=== PATIENT | female | born 1965 | race Caucasian/White ===

== ENCOUNTER 2016-07-06 17:36 | Emergency (ER) | payer MEDICARE | END 2016-07-06 18:25 | disposition home or self-care (01) | LOC: ER 17:36 | DX: K02.9 Dental caries, unspecified (principal); K04.7 Periapical abscess without sinus; K08.89 Other specified disorders of teeth and supporting structures; F17.210 Nicotine dependence, cigarettes, uncomplicated; Z79.899 Other long term (current) drug therapy ==

== ENCOUNTER 2016-07-10 15:15 | Emergency (ER) | payer MEDICARE, OTHER ==
[~2016-07-10 15:15] MED LIST: ALBUTEROL IN200 PUFF INH; DULCOLAX5 MG PO; LISINOPRIL10 MG PO; LORATADINE10 MG PO; METHADONE HCL10 MG PO; MONTELUKAST SOD10 MG PO; NEURONTIN800 MG PO; OXYCODONE HCL15 MG PO
== END 2016-07-10 16:20 | disposition home or self-care (01) ==
LOC: ER 15:15
DX: S93.601A Unspecified sprain of right foot, initial encounter (principal); W18.09XA Striking against other object with subsequent fall, initial encounter; Y92.009 Unspecified place in unspecified non-institutional (private) residence as the place of occurrence of the external cause
CPT/HCPCS: 73610; 73630; 99070; 99283; 99283-25; J7040; Q9967

== ENCOUNTER 2016-08-06 11:31 | Emergency (ER) | payer MEDICARE, OTHER | END 2016-08-06 13:50 | disposition other institution (70) | LOC: ER 11:31 | DX: S73.102A Unspecified sprain of left hip, initial encounter (principal); X50.9XXA Other and unspecified overexertion or strenuous movements or postures, initial encounter; I10 Essential (primary) hypertension; J44.9 Chronic obstructive pulmonary disease, unspecified; M54.9 Dorsalgia, unspecified; G89.29 Other chronic pain; Z90.710 Acquired absence of both cervix and uterus; Z79.899 Other long term (current) drug therapy; Z79.891 Long term (current) use of opiate analgesic | CPT/HCPCS: 73502; 99283 ==